=== PATIENT | male | born 1990 | race Caucasian/White ===

== ENCOUNTER 2016-11-05 10:57 | Emergency (ER) | payer MEDICAID ==
[~2016-11-05] VITALS: Ht 165.1 cm; Wt 78.0 kg
[2016-11-05 11:02] VITALS: Ht 165.1 cm; Wt 78.0 kg
[2016-11-05] MEDS ORDERED: ACET325T33 PO (11:26)
[2016-11-05] MEDS ORDERED: PENICILLIN G BENZ 1.2 MIL UNIT SYG IM ONE (11:30)
[2016-11-05] MEDS ORDERED: ACETAMINOPHEN 325 MG TAB PO ONE (11:30)
[2016-11-05] MEDS ORDERED: IBUPROFEN 600 MG TAB PO ONE (11:30)
--- NOTE | 2016-11-05 11:33 | ERD ---
ER Documentation Chief Complaint Date/Time DATE: 11/05/16 TIME: 11:27 Chief Complaint body aches, chills, cough HPI This patient is a 26-year-old male with no significant medical history presenting to the emergency department for tactile fevers ongoing intermittently for the past 4 days. Additionally the patient reports sore throat and body aches. The patient has had sick contacts. He admits to anorexia and odynophagia. He denies cough, urinary symptoms, nausea, vomiting, diarrhea, or other symptoms at this time. Last Tylenol was yesterday. ROS All systems reviewed and are negative except as per history of present illness. Medications Home Meds Active Scripts Acetaminophen* (Tylenol*) 325 Mg Tablet, 2 TAB PO Q6 Y for PAIN AND OR ELEVATED TEMP, #20 TAB Prov:DENNYS GUTIERRES PA-C 11/05/16 Allergies Allergies: Coded Allergies: No Known Allergy (Unverified , 11/05/16) PMhx/Soc Medical and Surgical Hx: pt denies Medical Hx, pt denies Surgical Hx Hx Alcohol Use: No Hx Substance Use: No Hx Tobacco Use: No Smoking Status: Current every day smoker FmHx Noncontributory for chief complaint. Physical Exam Vitals Vital Signs Date Time Temp Pulse Resp B/P Pulse Ox O2 Delivery O2 Flow Rate FiO2 11/05/16 11:02 101.4 122 18 140/76 99 Physical Exam Const: The patient is resting comfortably in no acute distress. Head: Atraumatic Eyes: Normal Conjunctiva ENT: Normal External Ears. There is bilateral tonsillar hypertrophy with significant exudate present. The airway is clear. There is no uvular shift. Neck: Full range of motion..~ No meningismus. Resp: Clear to auscultation bilaterally Cardio: Regular rate and rhythm, no murmurs Abd: Soft, non tender, non distended. Normal bowel sounds Skin: No petechiae or rashes Back: No midline or flank tenderness Ext: No cyanosis, or edema Neur: Awake and alert Psych: Normal Mood and Affect Results 24 hrs Current Medications Medications (Trade) Dose Ordered Sig/Patricia Route PRN Reason Start Time Stop Time Status Last Admin Dose Admin Penicillin G Benzathine (Bicillin La) 1,200,000 units ONCE ONCE IM 11/05/16 11:30 11/05/16 11:31 DC Acetaminophen (Tylenol Tab) 650 mg ONCE ONCE PO 11/05/16 11:30 11/05/16 11:31 DC Ibuprofen (Motrin) 600 mg ONCE ONCE PO 11/05/16 11:30 11/05/16 11:31 DC Procedures/MDM 18-year-old male presents secondary to complaints of sore throat and tactile fevers. On physical examination the patient is slightly febrile at 101.4F. The patient is slightly tachycardic at 122 bpm. I believe abnormal vitals are secondary to throat infection. On examination of the throat there is significant exudate present with bilateral tonsillar hypertrophy. The airway is clear and there is no uvular shift. I have low suspicion for retropharyngeal abscess, peritonsillar abscess, septicemia, or other emergent conditions. The patient was treated in the department with Penicillin Benzathine IM. The patient was given p.o. Tylenol and ibuprofen in the department as antipyretic. The patient's temperature reduced before discharge. The patient was hemodynamically stable prior to discharge. I advised the patient to follow-up with his primary care physician and return to the emergency department immediately with any new or worsening symptoms. The patient demonstrates good understanding of this information. The patient was discharged home with a prescription for Tylenol. All questions and concerns were addressed. Departure Diagnosis: Primary Impression: Tonsillitis Additional Impressions: Pharyngitis Pharyngitis/tonsillitis etiology: unspecified etiology Qualified Code: J02.9 - Pharyngitis, unspecified etiology Sore throat Condition: Fair Patient Instructions: Self-Care for Sore Throats, Pharyngitis, Strep (Presumed) Additional Instructions: Follow-up with your primary care physician within 1 week. Return to the emergency department immediately should you have any new or worsening symptoms, uncontrolled fevers, or other unexplained symptoms. Take all medications as directed. DENNYS GUTIERRES PA-C Nov 05, 2016 11:33
[2016-11-05 12:22] VITALS: BP 128/76; PULSE 98; RESP 18; TEMP 99.9
== END 2016-11-05 12:23 | disposition home or self-care (01) ==
LOC: FTE 10:57
DX: J03.90 Acute tonsillitis, unspecified (principal); F17.210 Nicotine dependence, cigarettes, uncomplicated
CPT/HCPCS: J0561; Z7610; 96372